=== PATIENT | female | born 1970 | race Caucasian/White ===

== ENCOUNTER 2018-03-22 18:46 | Emergency (ER) | payer BC, SELFPAY ==
[2018-03-22 18:47] VITALS: BP 134/81; PULSE 99; RESP 16; TEMP 36.9; O2SAT 99; BMI 19.7
--- NOTE | 2018-03-22 19:23 | ED.RN ---
ordered ekg in triage. placed pt in 2nd triage room, Chinmay said it might be a minute but he would come out to triage for ekg.
[2018-03-22] MEDS: Acetaminophen 325 MG Tablet 650 MG PO (19:48)
[2018-03-22] MEDS: 0.9% Normal Saline 1,000 ML 1000 ML IV ×2 (19:55→20:56)
[2018-03-22 20:19] LABS: Anion Gap 5 (5-15); BUN 7 mg/dL (7-18); BUN/Creat Ratio 9.4 RATIO (10-20); Calcium,Total 9.1 mg/dL (8.5-10.1); Chloride 104 mmol/L (98-107); Creatinine, Serum 0.74 mg/dL (0.55-1.02); EST Glomerular Filtration Rate 89 mL/min (>60); Est Glom Filt Rate - Afr Amer 107 mL/min (>60); Estimated Creatinine Clearance 81.22 ml/min; Glucose 76 mg/dL (74-106); Potassium 3.5 mmol/L (3.5-5.1); Sodium Level 138 mmol/L (136-145)
[2018-03-22 20:57] VITALS: BP 111/86; PULSE 76; RESP 18; O2SAT 97
--- NOTE | 2018-03-22 21:48 | ED.DCSUM_ITS ---
- ER Visit Summary Date of Service: 03/22/18 Chief Complaint: Patient has numerous complaints which include headache, trouble with vision, lightheadedness, dry mouth and decreased urine output. History of Present Illness: The patient is a 47 F who presents with symptoms consistent with heat exhaustion. Symptoms started 2 days ago. He states she has been out in the hot sun. She states she has not urinated in 12 hours. She did urinate her urine is very dark and concentrated. She complains of generalized headache. She has vague blurred vision. Denies ringing in her ears or decreased hearing. Denies trouble speech or swallowing. Denies any cardiac respiratory symptoms. She does plan of nausea without vomiting diarrhea. She reports decreased urine output with dark urine. She denies dysuria, urgency or hematuria. She denies any myalgias or arthralgias. She has a history of depression and on antidepressants as well as Synthroid for hypothyroidism. Please read written note for complete detail Physical Examination: Vital signs are remarkable for rapid heart rate. Head is atraumatic normocephalic. Pupils are equal round reactive. Extraocular muscles are intact. TMs are pearly white with landmarks noted. Nares patent with no drainage. Posterior pharynx without erythema or exudate. Uvula is midline. There is no dysphonia or dysphasia. Tongue and buccal mucosa are dry. Trachea is midline. There is no stridor with auscultation of the neck. Heart is regular without murmur, gallop or rub. S1 and S2 are normal. Lungs are clear to auscultation with good movement of air bilaterally. Patient is alert and oriented ?3. Motor is 5 over 5. Sensory is intact. DTRs are symmetric with no clonus or Babinski sign. Cranial 2 through 12 are intact. Cerebellar testing is normal. Test Results: BMP was obtained and is unremarkable. Emergency Department Course and Treatment: Since patient reports no urine output for 12 hours a BMP was obtained to evaluate for acute kidney injury. She was administered 1 L of normal saline. She was reevaluated at 2146. She states she has to urinate. She states her symptoms are resolved. Treatment Plan: Home-going instruction for heat exhaustion and importance of hydration Disposition: Discharged home in stable improved condition Impression: Heat exhaustion This note was generated with [employer] software. It may contain incorrect words, spelling, and punctuation that were not noted in review of the chart prior to signing ED Disposition - Plan for ED Patient: Disposition: Home or Assisted Living Chief Complaint: Shortness of Breath Instructions: ED Exhaustion Heat Referrals: Rodríguez Pace DO [Primary Care Provider] - As Needed Additional Instructions: You need to drink 3-4 glasses 2 hours prior to any activity outside of the weather remains hot. And, you should drink one half to one glass of water every 20-30 minutes while outside.
[2018-03-22 21:54] VITALS: BP 121/80; PULSE 80; RESP 16; O2SAT 99
== END 2018-03-22 21:55 | disposition home or self-care (01) ==
PROVIDERS: Emergency Provider Emergency Medicine; Family Provider Student in an Organized Health Care Education/Training Program; PCP Student in an Organized Health Care Education/Training Program
DX: T67.5XXA Heat exhaustion, unspecified, initial encounter (principal); X30.XXXA Exposure to excessive natural heat, initial encounter; Y93.9 Activity, unspecified; Y92.89 Other specified places as the place of occurrence of the external cause; Y99.9 Unspecified external cause status; F32.9 Major depressive disorder, single episode, unspecified; F41.9 Anxiety disorder, unspecified; F17.200 Nicotine dependence, unspecified, uncomplicated; E03.9 Hypothyroidism, unspecified
CPT/HCPCS: 80048; 99283

== ENCOUNTER 2018-03-23 10:25 | Emergency (ER) | payer BC, SELFPAY ==
[2018-03-23 10:26] VITALS: BP 131/83; PULSE 110; RESP 20; TEMP 37.2; O2SAT 100; BMI 20.4
--- NOTE | 2018-03-23 10:50 | EKG12_ITS ---
Test Reason : Blood Pressure : / mmHG Vent. Rate : 085 BPM Atrial Rate : 085 BPM P-R Int : 132 ms QRS Dur : 088 ms QT Int : 380 ms P-R-T Axes : 070 -42 018 degrees QTc Int : 452 ms Sinus rhythm with Premature supraventricular complexes Left axis deviation Nonspecific T wave abnormality Abnormal ECG Confirmed by STEFAN NUNEZ, ANKIT ([id number]), acquisition editor ISABEL MOTLEY ([id number]) on 03/24/2018 9:01:09 AM Referred By: KARISHMA Confirmed By:ANKIT AVILES MD
--- NOTE | 2018-03-23 10:50 | CT_ITS ---
STUDY: CT BRAIN WITHOUT CONTRAST REASON FOR EXAM: Female, 47 years old. Several day history of headaches. Dehydration. RADIATION DOSAGE (If Supplied By Facility): CTDIvol = ( 44.99 ) mGy, DLP = ( 745.49 ) mGycm TECHNIQUE: Transaxial CT imaging of the brain was performed without administration of intravenous contrast material. Individualized dose optimization techniques were used for this CT. COMPARISON: None. FINDINGS: Normal soft tissue structures. Normal calvarium. Normal size ventricles and extra-axial spaces for the patient's age. Normal white matter tracts of the cerebral hemispheres. Normal basal ganglia and thalami. Normal brainstem. Normal cerebellum. There is no intracranial hemorrhage. There are no findings of an acute ischemic infarction. Normal visualized paranasal sinuses. CT/Brain/Head without Contrast IMPRESSION: Normal unenhanced CT scan of the brain. Electronically Signed: Andrew Clayton MD at 14:48 EDT Tel [phone], Service support ,
[2018-03-23] MEDS: 0.9% Normal Saline 1,000 ML 1000 ML IV (11:08)
[2018-03-23 11:09] LABS: Absolute Lymphocyte Count 1.27 X10^3/ul (0.83-4.51); Basophil# 0.02 X10^3/uL; Basophil% 0.2 % (0-1); Eosinophil# 0.05 X10^3/uL; Eosinophils% 0.5 % (0-5); Lymphocyte # 1.27 X10^3/ul (4.0); Lymphocyte % 12.1 % (19-41); Mean Corp Hgb Conc 33.3 g/gl (32-36); Mean Corpuscular Hgb 31.3 pg (27.0-32.0); Mean Platelet Vol. 8.3 fl (6.2-12.0); Monocyte# 1.14 X10^3/uL; Monocyte% 10.9 % (0-10); Neutrophil % 76.2 % (47-70); Platelet Count 216 K/mm3 (150-450); RBC Distribution Width CV 12.8 % (11.6-14.6); RBC Distribution Width SD 44.2 fl (35.1-43.9); Red Blood Count 3.83 M/mm3 (4.2-5.4); White Blood Count 10.5 K/mm3 (4.4-11.0)
[2018-03-23 11:10] LABS: POSITIVE COUNT NO; POSITIVE DIFFERENTIAL NO; POSITIVE MORPHOLOGY NO
[2018-03-23] MEDS: Metoclopramide 10 MG/2 ML Vial IV (11:11)
[2018-03-23] MEDS: Ketorolac 30 MG/ML Syringe IV (11:11)
[2018-03-23 11:25] LABS: D-Dimer Quantitative (DVT/PE) 0.48 FEU/ug/m (0.27-0.49)
--- NOTE | 2018-03-23 11:28 | RAD_ITS ---
STUDY: X-RAY CHEST REASON FOR EXAM: Female, 47 years old. Headaches. Shortness of breath. TECHNIQUE: PA and lateral views of the chest. COMPARISON: Comparison is made with prior study dated May 28, 2016. FINDINGS: EKG electrodes are seen. The lungs are clear and expanded. Scattered calcified granulomas. There is no demonstrated pleural abnormality. Normal size heart. Normal mediastinum and jim. Normal visualized pulmonary arteries. Normal visualized aortic arch and descending thoracic aorta. Normal visualized thoracic spine. Normal visualized ribs, clavicles, and shoulders. There is no demonstrated abnormality of the visualized soft tissue structures of the upper abdomen. RAD/Chest PA and Lateral IMPRESSION: Normal x-ray examination of the chest. Electronically Signed: Andrew Clayton MD at 10:02 EDT Tel [phone], Service support ,
[2018-03-23 12:35] VITALS: BP 118/79; PULSE 91; RESP 23; O2SAT 99
[2018-03-23] MEDS: Aspirin 325 MG Tablet PO (13:12)
--- NOTE | 2018-03-23 13:15 | ED.VISSUMM ---
- ER Visit Summary Date of Service: 03/23/18 Chief Complaint: Headache and shortness of breath History of Present Illness: The patient is a [address] Pace. She reports that she has a headache that began 2 days ago. Is gradually gotten worse. Said diffuse sharp, throbbing pain. Is 10 at 10 worsening a 10 currently. Is worsened by bending over or coughing. Is relieved by nothing. She denies any similar headache previously. No recent injury to her head. There is no associated photophobia, nausea, or vomiting. Patient reports that 2 days ago she was walking and had the abrupt onset of upper back pain and shortness of breath. She reports the upper back pain is an aching pain Zeta 10 severity. It is unchanged with deep breaths. She reports that her shortness of breath is mild at rest and severe with walking. She denies any chest pain. No fever or chills. She does report that she has had a cough for the past week that is productive of a little clear sputum. No blood in her sputum. Physical Examination: Vitals: Stable. Afebrile. General: Well-nourished and well-developed. Head: Normocephalic atraumatic. Neck: Supple, no lymphadenopathy. No JVD. Nontender. Cardiovascular: Regular rate and rhythm. No murmurs. Respiratory: No respiratory distress. Clear to auscultation bilaterally. Abdominal: Soft, nontender, nondistended, normal bowel sounds. No guarding, rebound, or peritoneal signs. Back: Nontender. Extremities: Nontender, no edema. Skin: Normal color, no rash. Neurologic: Alert and oriented ?3. Cranial nerves II through XII are intact. Normal strength and sensation. Psych: Normal affect. Test Results: EKG is sinus at 97 with Q waves in leads III and aVF. However, this is unchanged from 2015. Chem-7 was obtained at 755 yesterday and was normal. This was not repeated. CBC is more for hematocrit 36.0, 7 neutrophils 76, lymphocytes of 12, monocytes of 11. Troponin is negative. D-dimer is negative. Chest x-ray shows no acute disease. CT brain shows no acute disease. Emergency Department Course and Treatment: Patient was given a liter bolus of normal saline. She is given Toradol and Reglan for her headache without relief. She asked for aspirin specifically and was given this. She is resting comfortably. Treatment Plan: Patient feels much better. She will be discharged instructions to drink plenty of fluids. Follow-up with Dr. Pace within 3-5 days for another exam. Return to the emergency department for any worsening symptoms. Disposition: To home in improved and stable condition. Impression: 1. Cephalgia. 2. Dyspnea, uncertain cause. This note was generated with [employer] dictation software. It may contain incorrect words, spelling, and punctuation that were not noted in review of the chart prior to signing ED Disposition - Plan for ED Patient: Chief Complaint: General Illness Instructions: ED Cephalgia Unspecified, ED Dyspnea Shortness of Breath Referrals: Rodríguez Pace DO [Primary Care Provider] - 3-5 Days
[2018-03-23 14:29] VITALS: BP 103/63; PULSE 86; RESP 16; O2SAT 98
[2018-03-23 15:26] VITALS: BP 124/86; PULSE 92; RESP 18; O2SAT 98
== END 2018-03-23 15:27 | disposition home or self-care (01) ==
PROVIDERS: Emergency Provider Emergency Medicine; Family Provider Student in an Organized Health Care Education/Training Program; PCP Student in an Organized Health Care Education/Training Program
DX: R51 Headache (principal); R06.00 Dyspnea, unspecified; J44.9 Chronic obstructive pulmonary disease, unspecified; E03.9 Hypothyroidism, unspecified; F32.9 Major depressive disorder, single episode, unspecified; F41.9 Anxiety disorder, unspecified; F17.210 Nicotine dependence, cigarettes, uncomplicated
CPT/HCPCS: 70450; 71046; 84484; 85025; 85379; 93005; 99285; J7030; A4216

== ENCOUNTER 2018-03-26 10:51 | Emergency (ER) | payer BC, SELFPAY ==
[2018-03-26 10:52] VITALS: BP 124/76; PULSE 104; RESP 17; TEMP 37.3; O2SAT 99; BMI 19.3
--- NOTE | 2018-03-26 11:03 | CT_ITS ---
STUDY: CTA OF THE BRAIN REASON FOR EXAM: Female, 47 years old. Headache 5 days RADIATION DOSAGE (If Supplied By Facility): CTDIvol = ( 25.90 ) mGy, DLP = ( 1126.35 ) mGycm TECHNIQUE: CT angiography was performed with a multi-detector CT scanner. Data acquisition was obtained from the skull base through the vertex following intravenous administration of 100 ml of Omnipaque 370. MIP images were reconstructed from the axial data set. Individualized dose optimization techniques were used for this CT. COMPARISON: March 23, 2018 CT scan head FINDINGS: Normal bilateral petrous carotid arteries. Normal right cavernous carotid artery with a normal supraclinoid bifurcation. There is slightly lesser caliber the left cavernous carotid artery when compared to the right without evidence of significant plaque formation or evidence of stenosis. There is a fenestrated right sided A1 segment. Normal left A1 segments of the anterior cerebral artery. Normal intact anterior communicating artery (ACOM). Normal bilateral A2 segments of the anterior cerebral arteries. Normal right M1 and M2 segments of the middle cerebral arteries, with a normal M1 bifurcation. Normal left M1 and M2 segments of the middle cerebral arteries, with a normal M1 bifurcation. Normal right posterior communicating artery (PCOM). Normal left posterior communicating artery (PCOM). There is a small atretic left vertebral artery with a dominant right vertebral artery. Normal basilar artery with a normal basilar bifurcation. The visualized bilateral superior cerebellar (SCA) arteries are normal. Normal bilateral P1, P2 and visualized P3 segments of the posterior cerebral arteries. There is no demonstrated aneurysm of the [place]. There is no demonstrated abnormality of the visualized brain. There is persistent sphenoid sinus mucosal thickening ethmoid sinus mucosal thickening and minimal if any maxillary sinus mucosal thickening. 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 Recommend consideration for follow-up MRI MRA for confirmation. At The time of this study standard 3-D subtraction reconstructed images are not provided for interpretation. These would be helpful to evaluate for small aneurysm. Multiple requests were made and still unavailable. If these become available an addendum can be performed. Electronically Signed: Gail Marquez MD at 13:54 EDT Tel , Service support ,
--- NOTE | 2018-03-26 11:04 | ED.VISSUMM ---
- ER Visit Summary Date of Service: 03/26/18 Chief Complaint: [] Headache for about a week History of Present Illness: The patient is a 47 F [] reports no past medical history reports that headache for about a week that is basically focused to the top of the head and occipital area. She was seen in the emergency department and negative CT x-ray of the workup was treated and then discharged home follow-up family doctor for the headache started on ibuprofen she was reports now the headache is persisted she then saw chiropractor did whole body massage that did not help either and she presents because of the persistence of the headache she has had no fever no cough no nausea or vomiting no neck stiffness no chest pain abdominal pain, she has no history of [place] PE DVT no history of [place] aneurysms or brain tumors no family history this headache is the persistent it is not necessarily worse of her life and again it started about a week ago as a typical headache Physical Examination: [] Vital signs are within normal range HEENT exam and head exam unremarkable the neck is very supple the neck is unremarkable to palpation no adenopathy the lungs are clear the heart tones are normal the abdomen soft nontender upper lower extremities unremarkable cranial nerves motor and cerebellar functions are all unremarkable she is awake alert her speech is normal no mental cloudiness no confusion vision normal Test Results: [] Emergency Department Course and Treatment: [] CT done the other day was read by radiologist unremarkable at this time she will receive IV fluids Compazine MRI is not available, CTA of the head and will proceed from there The patient's lab studies are generally unremarkable her white count is 13, the CTA brain shows no acute gross abnormality no aneurysm no tumor no bleeding there is per radiologist a fenestration of some of the arterial vessels that can be a normal variant but again no signs of aneurysm or any obvious structural lesions she does have signs of sinusitis involving the ethmoid and sphenoid sinuses, they recommend MRI as an outpatient for further delineation of above I explained all the above the patient she is feeling better her headache is resolved at this time she was given IV Zosyn she will be discharged on Augmentin Mucinex Flonase Naprosyn [place] as rescue medicine she will follow-up with physicians for further outpatient diagnostic studies and the outpatient MRI and return for change in symptoms Treatment Plan: [] Disposition: [] Home stable Impression: [] Headache, sphenoid and ethmoid sinus abnormalities consistent with sinusitis, nonspecific fenestration of [place] vessels outpatient MRI recommended This note was generated with [employer] dictation software. It may contain incorrect words, spelling, and punctuation that were not noted in review of the chart prior to signing ED Disposition - Plan for ED Patient: Chief Complaint: Headache Referrals: Rodríguez Pace DO [Primary Care Provider] -
[2018-03-26] MEDS: proCHLORPERazine 10 MG/2 ML Vial IV (11:11)
[2018-03-26] MEDS: DiphenhydrAMINE 50 MG/ML Syringe 25 MG IV (11:11)
[2018-03-26] MEDS: 0.9% Normal Saline 1,000 ML 999 ML IV (11:11)
[2018-03-26 11:29] LABS: Absolute Lymphocyte Count 0.99 X10^3/ul (0.83-4.51); Basophil# 0.03 X10^3/uL; Basophil% 0.2 % (0-1); Eosinophil# 0.13 X10^3/uL; Eosinophils% 0.9 % (0-5); Hematocrit 40.8 % (37-47); Hemoglobin 14.2 g/dl (12.0-15.0); Lymphocyte # 0.99 X10^3/ul (4.0); Lymphocyte % 6.8 % (19-41); Mean Corp Hgb Conc 34.8 g/gl (32-36); Mean Corpuscular Volume 91.9 fL (81-99); Mean Platelet Vol. 8.8 fl (6.2-12.0); Monocyte# 1.47 X10^3/uL; Neutrophil # 12.01 X10^3/uL (2.7-7.7); Neutrophil % 81.9 % (47-70); Platelet Count 319 K/mm3 (150-450); RBC Distribution Width CV 12.7 % (11.6-14.6); RBC Distribution Width SD 41.9 fl (35.1-43.9); Red Blood Count 4.44 M/mm3 (4.2-5.4); White Blood Count 14.7 K/mm3 (4.4-11.0)
[2018-03-26 11:30] LABS: POSITIVE COUNT NO; POSITIVE DIFFERENTIAL NO; POSITIVE MORPHOLOGY NO
[2018-03-26 11:50] LABS: Anion Gap 10 (5-15); BUN 8 mg/dL (7-18); BUN/Creat Ratio 10.4 RATIO (10-20); Calcium,Total 9.5 mg/dL (8.5-10.1); Chloride 101 mmol/L (98-107); Creatinine, Serum 0.77 mg/dL (0.55-1.02); EST Glomerular Filtration Rate 85 mL/min (>60); Est Glom Filt Rate - Afr Amer 103 mL/min (>60); Estimated Creatinine Clearance 76.73 ml/min; Glucose 133 mg/dL (74-106); Potassium 3.2 mmol/L (3.5-5.1); Sodium Level 137 mmol/L (136-145)
[2018-03-26 14:30] VITALS: BP 102/67; PULSE 96; RESP 16
--- NOTE | 2018-03-26 14:51 | ED.DEP ---
ED Disposition - Plan for ED Patient: Chief Complaint: Headache Instructions: ED Cephalgia Unspecified, ED Headache Sinus Prescriptions: Hydrocodone Bitart/Apap 5-325 [[place] 5MG-325MG] 1 tab PO Q4H PRN PRN 2 Days #10 tab PRN Reason: Pain Amox/Clavulanate Tablet [Augmentin Tablet] 875 mg PO Q12H #20 tab Naproxen [Naprosyn] 500 mg PO BID PRN #20 tab Fluticasone Propionate [Flonase Allergy Relief] 15.8 ml NS BID #1 spray.susp Guaifenesin [Mucinex] 1,200 mg PO BID #20 tbmp.12hr Referrals: Rodríguez Pace DO [Primary Care Provider] -
--- NOTE | 2018-03-26 14:54 | DCINST.ED_ITS ---
ED Disposition - Plan for ED Patient: Chief Complaint: Headache Instructions: ED Cephalgia Unspecified, ED Headache Sinus Prescriptions: Hydrocodone Bitart/Apap 5-325 [[place] 5MG-325MG] 1 tab PO Q4H PRN PRN 2 Days #10 tab PRN Reason: Pain Amox/Clavulanate Tablet [Augmentin Tablet] 875 mg PO Q12H #20 tab Naproxen [Naprosyn] 500 mg PO BID PRN #20 tab Fluticasone Propionate [Flonase Allergy Relief] 15.8 ml NS BID #1 spray.susp Guaifenesin [Mucinex] 1,200 mg PO BID #20 tbmp.12hr Referrals: Rodríguez Pace DO [Primary Care Provider] -
[2018-03-26 15:31] VITALS: BP 91/60; PULSE 80; RESP 16; O2SAT 100
== END 2018-03-26 15:31 | disposition home or self-care (01) ==
PROVIDERS: Emergency Provider Emergency Medicine; Family Provider Student in an Organized Health Care Education/Training Program; PCP Student in an Organized Health Care Education/Training Program
DX: R51 Headache (principal); J32.9 Chronic sinusitis, unspecified
CPT/HCPCS: 70496; 80048; 85025; 99282; J7030; Q9967

== ENCOUNTER → 2018-04-11 12:22 | Outpatient (CLI) | payer OTHER, BC, SELFPAY ==
--- NOTE | 2018-04-11 12:27 | RAD_ITS ---
STUDY: X-RAY - RIGHT HAND REASON FOR EXAM: Female, 47 years old. Pain at the base of the thumb following injury. TECHNIQUE: 3 view(s) of the hand. COMPARISON: None. FINDINGS: Normal radiocarpal articulation. Normal distal radioulnar joint. Normal visualized carpal bones. Normal carpal articulations Normal carpometacarpal articulation of the thumb. Normal second through fifth carpometacarpal joints. Nondisplaced transverse fracture at the base of the first metacarpal. Normal metacarpophalangeal joint of the thumb. Normal interphalangeal joint of the thumb. Normal proximal and distal phalanges of the thumb. Normal metacarpophalangeal joints of the second through fifth fingers. Normal proximal and distal interphalangeal joints of the second through fifth fingers. Normal phalanges of the second through fifth fingers. Soft tissue swelling. RAD/Hand Min 3 Views IMPRESSION: Nondisplaced fracture transverse fracture at the base of the first metacarpal. Electronically Signed: Andrew Clayton MD at 12:47 EDT Tel [phone], Service support ,
== END ==
PROVIDERS: Family Provider Student in an Organized Health Care Education/Training Program; PCP Student in an Organized Health Care Education/Training Program; Visit Provider Physician Assistant Surgical
DX: S60.221A Contusion of right hand, initial encounter (principal)
CPT/HCPCS: 73130

== ENCOUNTER → 2018-04-15 09:03 | Outpatient (CLI) | payer OTHER, SELFPAY ==
--- NOTE | 2018-04-15 09:05 | RAD_ITS ---
STUDY: X-RAY - RIGHT HAND REASON FOR EXAM: Fracture. TECHNIQUE: 3 view(s) of the hand. COMPARISON: Radiographs 04/11/2018. FINDINGS: Normal radiocarpal articulation. Normal distal radioulnar joint. Normal visualized carpal bones. Normal carpal articulations Normal carpometacarpal articulation of the thumb. Normal second through fifth carpometacarpal joints. There is a fracture of the proximal metaphysis of the first metacarpal with mild ulnar displacement unchanged since the prior study. Normal metacarpophalangeal joint of the thumb. Normal interphalangeal joint of the thumb. Normal proximal and distal phalanges of the thumb. Normal metacarpophalangeal joints of the second through fifth fingers. Normal proximal and distal interphalangeal joints of the second through fifth fingers. Normal phalanges of the second through fifth fingers. There is a bone island in the second distal phalanx. The soft tissue structures are unremarkable. RAD/Hand Min 3 Views IMPRESSION: No interval change of the proximal first metacarpal fracture. Electronically Signed: Sonu Mata MD at 15:59 EDT Tel , Service support ,
== END ==
PROVIDERS: Family Provider Student in an Organized Health Care Education/Training Program; PCP Student in an Organized Health Care Education/Training Program; Visit Provider Orthopaedic Surgery
DX: S62.201A Unspecified fracture of first metacarpal bone, right hand, initial encounter for closed fracture (principal)
CPT/HCPCS: 73130

== ENCOUNTER 2018-04-20 09:52 | Day surgery (SDC) | payer OTHER, SELFPAY ==
[2018-04-20] VITALS (9 sets, daily range): BP systolic 129–170; BP diastolic 95–110; PULSE 86–96; RESP 14–18; TEMP 36.4–36.6; O2SAT 93–100; BMI 19.8
[2018-04-20 10:26] LABS: Internal QC Validated? YES +Cl - CLEAR BKGD; Pregnancy, Urine Negative Negative
--- NOTE | 2018-04-20 11:25 | RAD_ITS ---
STUDY: X-RAY - RIGHT HAND, ATTENTION THUMB REASON FOR EXAM: Closed reduction with percutaneous pinning of first metacarpal. TECHNIQUE: 2 view(s) of the finger were obtained. COMPARISON: Radiographs 04/15/2018. FINDINGS: There are 2 K wires transfixing a fracture of the proximal first metacarpal metaphysis in anatomical alignment and position. Electronically Signed: Sonu Mata MD at 13:53 EDT Tel , Service support , RAD/Finger(s) Min 2 Views
[2018-04-20] MEDS: Cefazolin 2 GM in 0.9% Normal Saline 100 ML IV (12:38)
--- NOTE | 2018-04-20 13:21 | DCINST_ITS ---
Discharge Diet: No Restrictions - leave dressing on until seen in postop clinic Discharge Activity: May Not Drive May shower in (days): 1 Ice area for (Minutes): 20 - Every hour while awake. Weight Bearing Status: Weight bearing as tolerated Keep extremity elevated above heart level: Operative Extremity Call your doctor if your incision/area has: Continuous Slow Oozing, Sudden Increased Bleeding, Increased Pain/ Swelling, Increased Redness, Foul Smelling Discharge Call your doctor if you observe: Fever of 101 or Higher, Coldness, Increased Pain, Numbness or Tingling, Change in Color, Calf discomfort Allergies/Adverse Reactions: Allergies No Known Allergies Allergy (Verified 04/20/18 10:25) Medications to take at Discharge Venlafaxine XR [Effexor Xr] 150 mg PO DAILY 02/08/15 busPIRone [Buspar] 10 mg PO BID PRN 05/28/16 Levothyroxine [Synthroid] 1 tab PO DAILY 03/22/18 Venlafaxine HCl [Venlafaxine HCl] 1 tab PO DAILY 03/22/18 buPROPion XL [Wellbutrin Xl] 150 mg PO DAILY 04/18/18 Primary Care Physician: Rodríguez Pace DO [Primary Care Provider] - Test Results: Test results from this visit will be discussed in further detail at your follow- up appointment, if applicable. Please Follow Up With: Lesley Cordero DO - [phone]
--- NOTE | 2018-04-20 13:27 | OP.PCM_ITS ---
Report of Operation Date of Procedure: 04/20/18 Pre-Operative Diagnosis: displaced right first metacarpal fracture Post-Operative Diagnosis: same Surgery/Procedure Performed:: crpp left first metacarpal Type of Anesthesia:: General Anesthesiologist: Bulmaro Temple Estimated Blood Loss (mL): minimal Fluids Replaced: 800cc Description of Procedure: Preoperative note Patient is a 47-year-old female who fell onto her outstretched right thumb displaced metacarpal seen in the office and decision was made to take her to the operating room for close reduction possible percutaneous pinning versus open reduction. Wrist benefits and alternatives surgery discussed with patient. Risks including but not limited to blood loss, blood clot, infection, neurovascular injury, failure procedure, loss of life and loss of limb. Patient is aware like proceed with right first metacarpal closed reduction percutaneous pinning repair is indicated. Operative note Patient seen and examined preoperative holding area. Right first name is Fern was marked. Patient brought to the operating room placed supine on the operating table. Sign, anesthesia, antibiotics for Mr. The right arm was prepped and draped in usual sterile fashion after we manipulated the metacarpal fracture were able to get a better alignment. We then used to 4 5 K wires starting from the interval from the first webspace angulating it into the fracture site across the fracture site into the distal piece as we had tried initially to start from the radial side we were displacing the fracture further. After the successful crosspin the fracture site we then bent the K wires and truncated the distal piece in place a thumb spica plaster splint over her right hand. After sterile dressings were applied. Patient was taken to recovery room in stable condition there were no comp occasions patient will patient trans-tolerated procedure well. Postoperative note Follow-up in 2 weeks Pharmacy has prescriptions next Leave dressing intact next Dragon disclaimer This note was generated with [employer] dictation software. It may contain incorrect words, spelling, and punctuation that were not noted in checking the note before signing.
== END 2018-04-20 15:23 | disposition home or self-care (01) ==
LOC: SDC 09:53 → AC 09:55
PROVIDERS: Family Provider Student in an Organized Health Care Education/Training Program; PCP Student in an Organized Health Care Education/Training Program; Visit Provider Orthopaedic Surgery
PROC: (CPT 26615; principal; 2018-04-20 11:10)
DX: S62.231A Other displaced fracture of base of first metacarpal bone, right hand, initial encounter for closed fracture (principal); S62.201A Unspecified fracture of first metacarpal bone, right hand, initial encounter for closed fracture; F17.200 Nicotine dependence, unspecified, uncomplicated; F41.9 Anxiety disorder, unspecified; F32.9 Major depressive disorder, single episode, unspecified; W22.8XXA Striking against or struck by other objects, initial encounter; Y93.89 Activity, other specified; Y92.89 Other specified places as the place of occurrence of the external cause; Y99.0 Civilian activity done for income or pay
CPT/HCPCS: 26615; 73140; 76000; 81025; J7120; J2405

== ENCOUNTER → 2018-05-03 09:59 | Outpatient (CLI) | payer OTHER, SELFPAY ==
--- NOTE | 2018-05-03 10:04 | RAD_ITS ---
STUDY: X-RAY - RIGHT HAND REASON FOR EXAM: Female, 47 years old. 2 weeks after ORIF for fracture. TECHNIQUE: 3 view(s) of the hand through casting material. COMPARISON: April 15, 2018 FINDINGS: Bones: 2 pins been placed across the previously described transverse fracture of the base of the proximal phalanx first digit. No complications are noted. Joints: The joints are unremarkable. Soft tissues: The soft tissues are unremarkable. Foreign body: None RAD/Hand Min 3 Views IMPRESSION: ORIF changes of right first metacarpal. No complications noted. Electronically Signed: Mekhi Scott MD at 17:59 EDT , Service support ,
== END ==
PROVIDERS: Family Provider Student in an Organized Health Care Education/Training Program; PCP Student in an Organized Health Care Education/Training Program; Visit Provider Orthopaedic Surgery
DX: S62.201A Unspecified fracture of first metacarpal bone, right hand, initial encounter for closed fracture (principal)
CPT/HCPCS: 73130

== ENCOUNTER → 2018-05-16 14:09 | Outpatient (CLI) | payer OTHER, SELFPAY | PROVIDERS: Family Provider Student in an Organized Health Care Education/Training Program; PCP Student in an Organized Health Care Education/Training Program; Visit Provider Physician Assistant | DX: S62.201A Unspecified fracture of first metacarpal bone, right hand, initial encounter for closed fracture (principal) | CPT/HCPCS: 73130 ==

== ENCOUNTER → 2018-05-31 08:31 | Outpatient (CLI) | payer OTHER, SELFPAY | PROVIDERS: Family Provider Student in an Organized Health Care Education/Training Program; PCP Student in an Organized Health Care Education/Training Program; Visit Provider Orthopaedic Surgery | DX: S62.201A Unspecified fracture of first metacarpal bone, right hand, initial encounter for closed fracture (principal) | CPT/HCPCS: 73130 ==

== ENCOUNTER 2018-07-14 08:00 | Outpatient (RCR) | payer OTHER, SELFPAY ==
--- NOTE | 2018-06-03 10:12 | HP.OTEVAL ---
Patient's Visit Information SILAS LEE is a 47 year old F, referred to Occupational Therapy by Lesley Cordero DO, with a diagnosis of Metacarpal fx 1st digit. Date of Evaluation: 06/03/18 Occupational Therapist: Belen Strickland - Subjective Subjective: Initial injury occurred April 11 while at work. 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 She had 2x wires place to promote healing 1.5 week after break and recently wires were removed 05/31/18. - Pain Right Hand 0 Pain Intensity Range: 0, 7, 8 - ROM Wrist: flex R 0-53, L 0-83; ext R 0-29, L 0-57 MP: R 0-26, L WFL IP: R 0-54, L WNL Radial Abduction: R 0-31, L WNL MP: WFL PIP: WFL DIP: WFL - Strength Head Of Physics: R held at this time; L WFL Lateral Pinch: R held at this time; L WFL Tripod Pinch: R held at this time; L WFL Tip-to-Tip Pinch: R held at this time; L WFL Strength Comments: Will test next session for L handed baseline assessment and R as tolerated as will be full 8 weeks post break. - Sensation Sensation Comments: denies numbness or tingling. 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 Goal:: Silas R thumb ROM to increase by 10-15 degrees for similar ROM of L unaffected thumb to promote increased manipulation skills by d/c. Goal:: Silas to have no more than 1/10 pain in R affected thumb with lifting, sefl-care,a nd IADls needed for work related tasks 4/5 trials 80% of the time by d/c. Goal:: Silas r hand dexterity and FMC to be similar to L unaffected hand as measured through 9 hole pegboard test by d/c. Goal:: Silas to complete jt protection and energy conservation techniques 4/5 trials 80% of the time to prevent reinjury and promote increased ability to complete ADL/IADls including work-based tasks by d/c. Goal:: Silas to be (i) to return to all ADL/IADls including in hand and b hand coordination tasks 4/5 trials 80% of the time by d/c. - Rehabilitation General Assessment: Silas arrived to OT evaluation on this date of 06/03/18. She is post metacarpal fracture of first digits. Pins have been removed. She exhibits limited strength, ROM, and ability to complete ADL/IADls as fracture still healing. 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 OT to work on ROM, PRE, protective splint, edema management, and pain management through modalities to help decrease pain and promote returning to PLOF for all ADls/IADls including work tasks. Rehabilitation Potential: Good - Anticipated Interventions Anticipated Interventions: A/AAROM/PROM, Strengthening, Scar Care, Desensitization, Modalities, Orthoses, Joint Protection/Energy Conservation, Ergonomic Education, Fine Motor Coord/Miguel Ángel, Caregiver Training, Home Program Other Interventions: Will adjust protective splint next session as needed. First appointment 06/07/18. - Visit Plan Frequency: 2-3x /Week Duration: 4-6 Weeks General Plan: OT to work on ROM, PRE strength, edema mangement as needed, modalities as needed. TEXT: Thank you for the opportunity to evaluate your patient. For Medicare and Medicare HMO plans, please review the plan of care and approve it. It will need to be FAXED BACK to us at [phone] for Medicare purposes. Please let me know if there are questions or concerns regarding this plan of care. Physician Signature: Date:
--- NOTE | 2018-07-14 10:27 | HP.OTDCSUM_ITS ---
HP - OT D/C Summary It has been my pleasure to treat MARINE LEE under orders from Lesley Cordero DO, for the diagnosis of Metacarpal fx 1st digit for a total of 12 visit(s). Please see the following information for a summary of their discharge status. - Overall Improvement % Improvement: 90 - Objective Objective/Function: Completed reassessment and results are as follows: ROM: thumb: -radial adduction R 0-44, L WNL. -opposition: R 0-20, L WNL. -MP flexion 0-35, L WNL. - IP -3- 69, L WNL. Strength: material worker (avg. 3 trials): R 45, L 59. lateral R 11, L 16. tripod R 11, L 15. tip R 8, L 10. 5 span material worker test: position 1: R 41, L 60. position 2: R 50, L 59. position 3: R 46, L 56. position 4: R 43, L 46. position 5: R 40, L 39. 9 hole pegboard: R 17.03 s. 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 Goal:: Marine R thumb ROM to increase by 10-15 degrees for similar ROM of L unaffected thumb to promote increased manipulation skills by d/c. Goal:: Marine to have no more than 1/10 pain in R affected thumb with lifting, sefl-care,a nd IADls needed for work related tasks 4/5 trials 80% of the time by d/c. Goal:: Marine r hand dexterity and FMC to be similar to L unaffected hand as measured through 9 hole pegboard test by d/c. Goal:: Marine to complete jt protection and energy conservation techniques 4/5 trials 80% of the time to prevent reinjury and promote increased ability to complete ADL/IADls including work-based tasks by d/c. Goal:: Marine to be (i) to return to all ADL/IADls including in hand and b hand coordination tasks 4/5 trials 80% of the time by d/c. - Plan Plan: Pt. to be d/c'd today due to end of date range and completed covered appointments through workers compensation. She has been compliant with HEp and is to continue HEp to promote strength and endurance needed to return to work. She has follow up with Dr. Cordero on Wednesday. She is to call questions/concerns. - D/C Information If there are questions or concerns regarding this patient's occupational therapy, please fell free to call me at [phone]. Thank you for the referral of this patient. Sincerely, Belen Strickland
== END 2018-07-14 19:00 | disposition home or self-care (01) ==
LOC: OT 08:00
PROVIDERS: Family Provider Student in an Organized Health Care Education/Training Program; PCP Student in an Organized Health Care Education/Training Program; Visit Provider Orthopaedic Surgery
DX: S62.231D Other displaced fracture of base of first metacarpal bone, right hand, subsequent encounter for fracture with routine healing (principal)
CPT/HCPCS: 97110; 97166; 97168; 97530; 97760

== ENCOUNTER → 2018-07-19 08:00 | Outpatient (CLI) | payer OTHER, SELFPAY ==
--- NOTE | 2018-07-19 08:02 | RAD_ITS ---
STUDY: X-RAY - RIGHT HAND REASON FOR EXAM: Female, 47 years old. Follow-up first metacarpal fracture TECHNIQUE: 3 view(s) of the hand. COMPARISON: None. FINDINGS: Normal radiocarpal articulation. Normal distal radioulnar joint. Normal visualized carpal bones. Normal carpal articulations Normal carpometacarpal articulation of the thumb. Normal second through fifth carpometacarpal joints. There is a persistent fracture line within the base of the first metacarpal. The K wires have been removed. Normal metacarpophalangeal joint of the thumb. Normal interphalangeal joint of the thumb. Normal proximal and distal phalanges of the thumb. Normal metacarpophalangeal joints of the second through fifth fingers. Normal proximal and distal interphalangeal joints of the second through fifth fingers. Normal phalanges of the second through fifth fingers. The soft tissue structures are unremarkable. RAD/Hand Min 3 Views IMPRESSION: Persistent fracture line proximal first metacarpal. K wires have been removed. Electronically Signed: Gail Marquez MD at 17:19 EDT Tel , Service support ,
== END ==
PROVIDERS: Family Provider Student in an Organized Health Care Education/Training Program; PCP Student in an Organized Health Care Education/Training Program; Referring Provider Physician Assistant; Visit Provider Physician Assistant
DX: S62.201A Unspecified fracture of first metacarpal bone, right hand, initial encounter for closed fracture (principal)
CPT/HCPCS: 73130

== ENCOUNTER 2020-05-14 08:58 | Day surgery (SDC) | payer BC, SELFPAY ==
[2020-05-14] VITALS (7 sets, daily range): BP systolic 113–140; BP diastolic 79–92; PULSE 75–88; RESP 14–16; TEMP 36.1–36.4; O2SAT 92–97; BMI 21.9
[2020-05-14] MEDS: Lactated Ringers 1,000 ML 100 ML IV (09:50)
[2020-05-14 09:56] LABS: Internal QC Validated? YES +Cl - CLEAR BKGD; Pregnancy, Urine Negative Negative
--- NOTE | 2020-05-14 10:30 | LES_PTH ---
PATIENT: SILAS LEE LOC: [facility] [place] U#:[id number] AGE/SX: 49/F ROOM: RE05/14/[address]: Dr. Danny Silver MD : 1970 BED: DIS: 05/14/2020 SPEC #: [id number] RECD: 05/14/20 11:48 STATUS: BALJINDER GILBERT #: [id number] RONNA: 05/14/20 10:[address]: Danny Silver DEPT: SURGICAL PATHOLOGY RECD BY: Davian Bautista ENTERED: 05/14/20 11:52 SP TYPE: Lesion OTHR DR: Dr. Rodríguez Pace, Tissues: Skin of lip, NOS Procedures: Special Stain Group I Surgery Specimen Level IV GMS Stain (control) HEADER OPERATION: Excision lip lesion PRE-OP DIAGNOSIS: Neoplasm of lip TISSUE SUBMITTED: Lower lip lesion MICROSCOPIC DIAGNOSIS Lesion of lower lip, biopsy: Hyperkeratosis, parakeratosis and mild acanthosis. No evidence of malignancy. Negative for fungal organisms. See comment. AM:jarrett 05/15/20 COMMENT GMS stain with matched controls was used in the evaluation of this case. Case has been reviewed in consultation with Dr. Clifton who concurs with the above diagnosis. IDC:SJ MICROSCOPIC DESCRIPTION Slides are reviewed. GROSS DESCRIPTION Received in fixative is one container labeled with the patient's name and designated lower lip lesion. The specimen consists of a piece of blount-white skin measuring 0.4 x 0.2 x 0.2 cm. The specimen is inked and submitted entirely in one cassette. / DIALLO:jarrett 05/14/20 TC:5 CPT: 00272, 15372
--- NOTE | 2020-05-14 10:43 | DCINST_ITS ---
You will use the following diet at home:: No restrictions Your food should be the consistency of: Regular Discharge Activity: Return to Normal Activity Call your doctor if your incision/area has: Increased Pain/ Swelling Allergies/Adverse Reactions: Allergies No Known Allergies Allergy (Verified 05/03/18 10:11) Medications to take at Discharge Venlafaxine XR [Effexor Xr] 150 mg PO DAILY 02/08/15 busPIRone [Buspar] 10 mg PO BID PRN 05/28/16 Levothyroxine [Synthroid] 1 tab PO DAILY 03/22/18 Venlafaxine HCl 1 tab PO DAILY 03/22/18 buPROPion XL [Wellbutrin Xl] 150 mg PO DAILY 04/18/18 Oxycodone HCl/Acetaminophen [Percocet 5/325] 1 - 2 tablet PO Q6H PRN PRN 5 Days #40 tablet 04/20/18 Primary Care Physician: Rodríguez Pace DO [Primary Care Provider] - Test Results: Test results from this visit will be discussed in further detail at your follow- up appointment, if applicable. Please Follow Up With: Almas Silver MD When: 1 month
--- NOTE | 2020-05-14 10:44 | OP.PCM_ITS ---
Problem List (1) Mass of lip Status: Chronic Report of Operation Date of Procedure: 05/14/20 Pre-Operative Diagnosis: lower lip mass Post-Operative Diagnosis: lower lip mass Surgery/Procedure Performed:: excision lower lip mass, 5mm Description of Procedure: on the day of the procedure, after appropriate informed consent was obtained, the patient was brought to the operating room and placed in supine position on the operating table. she was placed under MAC anesthesia by the anesthesiologist. her left lower lip mass (5mm) was injected with lidocaine/epinephrine. a [place] blade was used to make an elliptical 1cm x 5mm excision in the left lower lip. hemostasis was achieved with the bipolar. the defect was closed with 4-0 chromic. she was awoken and transferred to the PACU in stable condition.
[2020-05-14] MEDS: Acetaminophen 325 MG Tablet 650 MG PO (11:24)
== END 2020-05-14 11:38 | disposition home or self-care (01) ==
LOC: SDC 08:58 → AC 09:00
PROVIDERS: Anesthesiology; PCP Student in an Organized Health Care Education/Training Program; Referring Provider Otolaryngology; Visit Provider Otolaryngology
PROC: (CPT 11440; principal; 2020-05-14 10:20)
DX: D37.01 Neoplasm of uncertain behavior of lip (principal); L85.9 Epidermal thickening, unspecified; L83 Acanthosis nigricans; F17.200 Nicotine dependence, unspecified, uncomplicated; F41.9 Anxiety disorder, unspecified; F32.9 Major depressive disorder, single episode, unspecified
CPT/HCPCS: 00300; 11440; 81025; 87635; 88305; 88312; 94799; J7120; J2405; U0003